=== PATIENT | female | born 1955 | race Caucasian/White ===

== ENCOUNTER 2017-12-25 09:35 | Outpatient (CLI) | payer BC ==
--- NOTE | 2017-12-25 11:03 | MMO ---
BILATERAL SCREENING MAMMOGRAM: HISTORY: Screening. COMPARISON: Mammograms from 2017, 2016, and 2015. TECHNIQUE: Bilateral screening CC and MLO mammograms are performed with computer aided detection. FINDINGS: There are scattered fibroglandular densities. Benign calcification, right breast. No suspicious mass, architectural distortion, or microcalcifications. IMPRESSION: BI-RADS 2-Benign findings. Continued screening is recommended. POS: [facility]
== END 2017-12-25 09:36 | disposition home or self-care (01) ==
LOC: SCSMAMMO 09:35
PROVIDERS: ATTEND Internal Medicine
DX: Z12.31 Encounter for screening mammogram for malignant neoplasm of breast (principal)
CPT/HCPCS: 77067